=== PATIENT | male | born 1980 | race Caucasian/White ===

== ENCOUNTER 2022-03-20 21:49 | Emergency (ER) | payer BC, SELFPAY ==
[2022-03-20 22:16] VITALS: BP 159/83; PULSE 106; RESP 18; TEMP 36.8; O2SAT 99; BMI 23.7
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
== END 2022-03-21 01:29 | disposition home or self-care (01) ==
PROVIDERS: Emergency Provider Physician Assistant
DX: Z04.1 Encounter for examination and observation following transport accident (principal); V50.6XXA Passenger in pick-up truck or van injured in collision with pedestrian or animal in traffic accident, initial encounter
CPT/HCPCS: 71045; 72125; 73030; 99284